=== PATIENT | female | born 1995 | race Two or more races ===

== ENCOUNTER 2025-02-21 16:51 | Emergency (ER) | payer OTHER ==
[2025-02-21 17:00] VITALS: BP 102/81; PULSE 107; RESP 16; O2SAT 97
--- NOTE | 2025-02-21 17:36 | ED.PDOC ---
History of Present Illness HPI Comments 29 y/o F presents for c/o anxiety, today. Patient is a poor historian and disjointed thoughts and reports seeking assistance for her current anxiety, today. Patient refuses all medical interventions, including blood work and urine analysis, due to "not trusting the [facility] system." Patient re fusing to answer any further questions. States she does not have to disclose whether or not she uses any drugs. States "I have an arrest warrant so you guys aren't going to call the naturopathic oncology provider right." During the interview patient began to curse and yelling at staff stating "you do not need to know all of that, quit asking me questions and do your damn job and take care of the other patients." Chief Complaint: Anxiety Time Seen by MD: 17:20 Reviewed Notes: Nurses Notes, Medications, Allergies Information Source: Patient Mode of Arrival: Ambulatory Severity: Moderate Timing: Hours Duration: Since onset Prehospital treatment: None Past Medical History PAST MEDICAL HISTORY: Anxiety Surgical History: Denies all surgeries 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 Patient was asked if I may listen to her heart and lungs and she replied "you can go fuck yourself") HEENT: NOT DONE Neck: NOT DONE Respiratory: No Accessory Muscle Use, No Respiratory Distress Cardiovascular: NOT DONE Breast Exam: Deferred Gastrointestinal: NOT DONE Genitalia: Deferred Pelvic: Deferred Rectal: Deferred Extremities: No pedal edema Musculoskeletal : Apperance: Normal Neurologic: Alert, Other (Ambulating in the ER with a steady gait) Cerebellar Function: NOT DONE Reflexes: NOT DONE Skin: NOT DONE Lymphatic: NOT DONE Was a procedure done? Was a procedure done?: No EKG EKG : Comments Refusing Differential Dx Considerations may include: anxiety, schizoaffective disorder, substance abuse X-Ray, Labs, Meds, VS Vital Signs Date Time Temp Pulse Resp B/P (MAP) Pulse Ox O2 Delivery O2 Flow Rate FiO2 4/11/25 17:00 107 16 102/81 (88) 97 X-Ray, Labs, Meds, VS Comment 29-year-old female with a history of anxiety and unknown additional medical history here today initially for complaints of anxiety. Patient was quickly became verbally abusive and aggressive to myself and staff, cursing, refusing to participate further in the history and physical examination portions of my evaluation. Refusing all blood work and urine testing. Refusing all me dications. Patient does not meet hold criteria per my evaluation as she still does appear to have capacity to make her own decisions. Does not meet criteria for grave disability based off of my evaluation. Denies any suicidal or homicidal thoughts. After repeated conversations with myself and the patient and nursing staff with the patient, decision was made to discharge the patient as she was refusing any further care. We all made a explicitly clear to her that, should she change her mind, we would be more than happy to see her to which he replied "go fuck yourself and take care of the other patients in this [facility] you're wasting your time with me I do not even know why you are still talking to me." Time of 1ST Reevaluation: 17:50 Reevaluation 1ST: Unchanged Time of 2ND Reevaluation: 19:31 Reevaluation 2ND: Unchanged Patient Education/Counseling: Diagnosis, Treatment, Need For Follow Up Family Education/Counseling: No Family Present Departure 1 Departure Time of Disposition: 19:31 Impression: Primary Impression: Anxiety Additional Impression: Care refused by patient Disposition: 01 HOME / SELF CARE / HOMELESS Condition: Stable Critical Care Note Critical Care Time?: No Stability Stability form required: No Heart Score Heart Score: Heart Score Response (Comments) Value History N/A 0 EKG N/A 0 Age N/A 0 Risk Factors N/A 0 Troponin N/A 0 Total 0 DANIEL DE LA TORRE Feb 21, 2025 17:36 CAT FOURNIER MD Feb 21, 2025 19:31
== END 2025-02-21 21:20 | disposition left against medical advice (07) ==
LOC: ER 16:51
DX: F41.9 Anxiety disorder, unspecified (principal)